=== PATIENT | male | born 1940 | race Caucasian/White ===

== ENCOUNTER 2022-02-09 13:37 | Emergency (ER) | payer MEDICARE, OTHER, SELFPAY ==
[2022-02-09 14:11] VITALS: BP 145/67; PULSE 79; RESP 20; TEMP 36.8; O2SAT 96; BMI 25.1
--- NOTE | 2022-02-09 14:47 | DI.RAD.S_ITS ---
PROCEDURE: XR CHEST 1V INDICATIONS: covid symptoms TECHNIQUE: One view of the chest was acquired. COMPARISON: None. FINDINGS: Surgical changes and devices: None. Lungs and pleura: Reticular opacities are seen at the bilateral lung bases. No pleural effusions or pneumothorax. Mediastinum: Mediastinal contours appear normal. Heart size is normal. Bones and chest wall: No suspicious bony lesions. Overlying soft tissues appear unremarkable. IMPRESSION: Bibasilar reticular opacities could be secondary to an atypical pneumonia versus chronic interstitial lung disease. Dictated by: Raghav Pineda M.D. on 02/09/2022 at 14:31 Approved by: Raghav Pineda M.D. on 02/09/2022 at 14:34
[2022-02-09 15:27] LABS: COVID19 -Nasal RAPID POSITIVE (Negative)
== END 2022-02-09 19:20 | disposition left against medical advice (07) ==
PROVIDERS: Emergency Provider Emergency Medicine
DX: U07.1 COVID-19 (principal)
CPT/HCPCS: 71045; 87635; 99283; C9803